=== PATIENT | male | born 1935 | race Caucasian/White ===

== ENCOUNTER 2021-07-12 18:52 | Observation (INO) | payer MEDICARE ==
--- NOTE | 2021-07-12 19:48 | ED ---
General Adult HPI - General Chief complaint: Arrhythmia/Palpitations Stated complaint: Weakness Time Seen by Provider: 07/12/21 19:33 Source: patient, RN/MD, old records reviewed Mode of arrival: ambulatory Limitations: no limitations - History of Present Illness Initial comments: Patient was transferred to our ED from the [facility] ED by jennifer deleon. Per [facility] emergency physician report, the patient was transferred due to atrial fibrillation and symptomatic bradycardia. Patient states that his landlord took him to the [facility] ED this afternoon because he was "not feeling well". Patient states that he has felt generally weak and mildly dyspneic today. Patient states that he is under adult foster care. Patient denies having any pain, fever or chills, headache, focal numbness/weakness/neuro deficit, visual changes, speech difficulty, neck/back/extremity pain, chest pain, cough or cold symptoms, syncope, abdominal pain, nausea/vomiting/diarrhea, bloody or melanotic stool, dysuria or urinary symptoms, or any other symptoms or complaints. Patient's labs and head CT report were reviewed myself. Patient's labs are pertinent for a WBC count of 11.5, a glucose of 200, a BUN of 29, a creatinine of 2.2, a negative Covid test, and a negative troponin. Patient's head CT report was negative. Patient is on Eliquis anticoagulation therapy. - Related Data Home Medications Medication Instructions Recorded Confirmed Apixaban [Eliquis] 2.5 mg PO BID@0700,1900 07/12/21 07/12/21 Aspirin EC [Ecotrin Low Dose] 81 mg PO DAILY@0707/12/21 07/12/21 Cholecalciferol [Vitamin D3 (25 25 mcg PO DAILY@0707/12/21 07/12/21 Mcg = 1000 Iu)] Cyanocobalamin (Vitamin B-12) 1,000 mcg PO DAILY@0700 07/12/21 07/12/21 [Vitamin B-12] Fenofibrate Nanocrystallized 48 mg PO HS@1900 07/12/21 07/12/21 [Fenofibrate] Ferrous Sulfate [Feosol] 325 mg PO DAILY@0700 07/12/21 07/12/21 Folic Acid 1 mg PO DAILY@0700 07/12/21 07/12/21 Insuln Asp Prt/Insulin Aspart 8 unit SQ BID@0700,1900 07/12/21 07/12/21 [NovoLOG MIX 70-30 VIAL] Levothyroxine Sodium [Synthroid] 25 mcg PO DAILY@0700 07/12/21 07/12/21 Levothyroxine Sodium [Synthroid] 200 mcg PO DAILY@0700 07/12/21 07/12/21 Metoprolol Tartrate 12.5 mg PO DAILY@0700 07/12/21 07/12/21 OLANZapine [ZyPREXA] 2.5 mg PO BID@0700,1900 07/12/21 07/12/21 OLANZapine [ZyPREXA] 10 mg PO HS@1900 07/12/21 07/12/21 Tamsulosin HCl [Flomax] 0.4 mg PO HS@1900 07/12/21 07/12/21 lamoTRIgine [LaMICtal] 100 mg PO BID@0700,1900 07/12/21 07/12/21 Allergies Allergy/AdvReac Type Severity Reaction Status Date / Time No Known Allergies Allergy Verified 07/12/21 20:25 Review of Systems ROS Statement: Those systems with pertinent positive or pertinent negative responses have been documented in the HPI. ROS Other: All systems not noted in ROS Statement are negative. Past Medical History Past Medical History: Atrial Fibrillation, Diabetes Mellitus, Hyperlipidemia, Hypertension, Renal Disease History of Any Multi-Drug Resistant Organisms: None Reported Past Surgical History: No Surgical Hx Reported Smoking Status: Current every day smoker Past Alcohol Use History: None Reported Past Drug Use History: None Reported General Exam Limitations: no limitations General appearance: alert, in no apparent distress Head exam: Present: atraumatic, normocephalic Eye exam: Present: normal appearance, PERRL, EOMI ENT exam: Present: mucous membranes moist Neck exam: Present: other (Trachea is in midline). Absent: tenderness, meningismus Respiratory exam: Present: normal lung sounds bilaterally. Absent: respiratory distress, wheezes, rales, rhonchi, stridor Cardiovascular Exam: Present: bradycardia, irregular rhythm, normal heart sounds, other (Normal radial pulses bilaterally) GI/Abdominal exam: Present: soft. Absent: distended, tenderness, guarding Extremities exam: Absent: tenderness, pedal edema, calf tenderness Neurological exam: Present: alert, CN II-XII intact, other (Patient is oriented to person and place, but not to time). Absent: motor sensory deficit Psychiatric exam: Present: normal affect, normal mood Skin exam: Present: warm, dry, intact, normal color Course Vital Signs 07/12/21 07/12/21 18:55 20:10 Temperature 96.0 F L Pulse Rate 58 L 57 L Respiratory 18 16 Rate Blood Pressure 175/74 136/92 O2 Sat by Pulse 98 98 Oximetry - Reevaluation(s) Reevaluation #1: 07/12/21 21:26 Patient denies development of any new symptoms while in the ED. Patient remains in slow atrial flutter on the traffic monitor specialist. Patient remains alert and breathing comfortably with a normal room air oxygen saturation. Patient is aware of his test results, and he agrees with hospital admission at this time. 07/12/21 21:33 Case, H&P and test results were discussed with Dr. Gotti . He accepts hospital admission. He agrees with cardiology consultation. He has no further recommendations at this time. EKG Findings - EKG Comments: EKG Findings:: Atrial flutter with 4:1 AV conduction, ventricular rate of 60 bpm, left bundle branch block, QRS duration of 152 ms, QTc interval of 498 ms, leftward axis, no old EKG is available for comparison Medical Decision Making - Medical Decision Making Patient was transferred from [facility] for admission due to slow atrial fibrillation. Patient is noted to be in atrial flutter with 4:1 conduction in the ED. Patient's troponin remains negative. Patient's labs are pertinent for chronic renal insufficiency. Patient's labs are otherwise fairly unremarkable. Patient's chest x-ray is unremarkable. Patient has not been hypotensive while in the ED. Dr. Gotti has accepted hospital admission. - Lab Data Result diagrams: 07/12/21 20:09 07/12/21 20:09 Lab Results 07/12/21 07/12/21 07/12/21 Range/Units 19:49 20:09 20:09 WBC 9.6 (3.8-10.6) k/uL RBC 3.97 L (4.30-5.90) m/uL Hgb 13.4 (13.0-17.5) gm/dL Hct 41.2 (39.0-53.0) % MCV 103.6 H (80.0-100.0) fL MCH 33.8 (25.0-35.0) pg MCHC 32.6 (31.0-37.0) g/dL RDW 11.9 (11.5-15.5) % Plt Count 226 (150-450) k/uL MPV 8.4 Neutrophils % 87 % Lymphocytes % 9 % Monocytes % 3 % Eosinophils % 0 % Basophils % 0 % Neutrophils # 8.4 H (1.3-7.7) k/uL Lymphocytes # 0.9 L (1.0-4.8) k/uL Monocytes # 0.3 (0-1.0) k/uL Eosinophils # 0.0 (0-0.7) k/uL Basophils # 0.0 (0-0.2) k/uL Macrocytosis Slight PT 11.2 (9.0-12.0) sec INR 1.1 (<1.2) APTT 39.5 H (22.0-30.0) sec Sodium (137-145) mmol/L Potassium (3.5-5.1) mmol/L Chloride (98-107) mmol/L Carbon Dioxide (22-30) mmol/L Anion Gap mmol/L BUN (9-20) mg/dL Creatinine (0.66-1.25) mg/dL Est GFR (CKD-EPI)AfAm (>60 ml/min/1.73 sqM) Est GFR (CKD-EPI)NonAf (>60 ml/min/1.73 sqM) Glucose (74-99) mg/dL Calcium (8.4-10.2) mg/dL Magnesium (1.6-2.3) mg/dL Total Bilirubin (0.2-1.3) mg/dL AST (17-59) U/L ALT (4-49) U/L Alkaline Phosphatase (38-126) U/L Troponin I (0.000-0.034) ng/mL Total Protein (6.3-8.2) g/dL Albumin (3.5-5.0) g/dL TSH (0.465-4.680) mIU/L Urine Color Yellow Urine Appearance Clear (Clear) Urine pH 6.5 (5.0-8.0) Ur Specific [place] 1.014 (1.001-1.035) Urine Protein Trace H (Negative) Urine Glucose (UA) 1+ H (Negative) Urine Ketones Negative (Negative) Urine Blood Negative (Negative) Urine Nitrite Negative (Negative) Urine Bilirubin Negative (Negative) Urine Urobilinogen <2.0 (<2.0) mg/dL Ur Leukocyte Esterase Negative (Negative) 07/12/21 07/12/21 Range/Units 20:09 20:09 WBC (3.8-10.6) k/uL RBC (4.30-5.90) m/uL Hgb (13.0-17.5) gm/dL Hct (39.0-53.0) % MCV (80.0-100.0) fL MCH (25.0-35.0) pg MCHC (31.0-37.0) g/dL RDW (11.5-15.5) % Plt Count (150-450) k/uL MPV Neutrophils % % Lymphocytes % % Monocytes % % Eosinophils % % Basophils % % Neutrophils # (1.3-7.7) k/uL Lymphocytes # (1.0-4.8) k/uL Monocytes # (0-1.0) k/uL Eosinophils # (0-0.7) k/uL Basophils # (0-0.2) k/uL Macrocytosis PT (9.0-12.0) sec INR (<1.2) APTT (22.0-30.0) sec Sodium 141 (137-145) mmol/L Potassium 4.2 (3.5-5.1) mmol/L Chloride 115 H (98-107) mmol/L Carbon Dioxide 19 L (22-30) mmol/L Anion Gap 7 mmol/L BUN 27 H (9-20) mg/dL Creatinine 1.79 H (0.66-1.25) mg/dL Est GFR (CKD-EPI)AfAm 39 (>60 ml/min/1.73 sqM) Est GFR (CKD-EPI)NonAf 34 (>60 ml/min/1.73 sqM) Glucose 163 H (74-99) mg/dL Calcium 8.7 (8.4-10.2) mg/dL Magnesium 2.0 (1.6-2.3) mg/dL Total Bilirubin 0.4 (0.2-1.3) mg/dL AST 24 (17-59) U/L ALT 20 (4-49) U/L Alkaline Phosphatase 58 (38-126) U/L Troponin I <0.012 (0.000-0.034) ng/mL Total Protein 6.6 (6.3-8.2) g/dL Albumin 3.7 (3.5-5.0) g/dL TSH 2.160 (0.465-4.680) mIU/L Urine Color Urine Appearance (Clear) Urine pH (5.0-8.0) Ur Specific [place] (1.001-1.035) Urine Protein (Negative) Urine Glucose (UA) (Negative) Urine Ketones (Negative) Urine Blood (Negative) Urine Nitrite (Negative) Urine Bilirubin (Negative) Urine Urobilinogen (<2.0) mg/dL Ur Leukocyte Esterase (Negative) - Radiology Data Radiology results: report reviewed (Chest x-ray: No active cardiopulmonary disease. Normal heart. Atheromatous aorta.) Disposition Clinical Impression: Chronic renal insufficiency, Atrial flutter, Bradycardia Disposition: ADMITTED IP TO THIS HOSP Condition: Stable Is patient prescribed a controlled substance at d/c from ED?: No Referrals: Nonstaff,Physician [Primary Care Provider] - 1-2 days Time of Disposition: 21:34
--- NOTE | 2021-07-12 20:02 | XR ---
EXAMINATION TYPE: XR chest 1V portable DATE OF EXAM: 07/12/2021 COMPARISON: NONE HISTORY: Weakness TECHNIQUE: Single view FINDINGS: There is no heart failure nor confluent pneumonic infiltrate. Costophrenic angles are clear . Thoracic aorta is atheromatous. There are chest leads. IMPRESSION: No active cardiopulmonary disease. Normal heart. Atheromatous aorta.
[2021-07-12 20:25] LABS: Basophils % (A) 0 %; Eosinophils % (A) 0 %; HCT 41.2 % (39.0-53.0); HGB 13.4 gm/dL (13.0-17.5); Lymphocytes # (A) 0.9 k/uL (1.0-4.8); Lymphocytes % (A) 9 %; MCH 33.8 pg (25.0-35.0); MCHC 32.6 g/dL (31.0-37.0); MCV 103.6 fL (80.0-100.0); Macrocytosis Slight; Mean Platelet Volume 8.4; Monocytes # (A) 0.3 k/uL (0-1.0); Monocytes % (A) 3 %; Neutrophils # (A) 8.4 k/uL (1.3-7.7); Neutrophils % (A) 87 %; Platelet Count 226 k/uL (150-450); RBC 3.97 m/uL (4.30-5.90); RDW 11.9 % (11.5-15.5); WBC 9.6 k/uL (3.8-10.6)
[2021-07-12 20:33] LABS: Appearance,Urine Clear (Clear); Bilirubin,Urine Negative (Negative); Blood,Urine Negative (Negative); Color,Urine Yellow; Glucose,Urine (UA) 1+ (Negative); Ketones,Urine Negative (Negative); Leukocyte Esterase,Urine Negative (Negative); Nitrite,Urine Negative (Negative); PH, Urine 6.5 (5.0-8.0); Protein,Urine Trace (Negative); Specific Gravity,Urine 1.014 (1.001-1.035); Urobilinogen,Urine <2.0 mg/dL (<2.0)
[2021-07-12 20:39] LABS: Albumin 3.7 g/dL (3.5-5.0); Calcium 8.7 mg/dL (8.4-10.2); Potassium 4.2 mmol/L (3.5-5.1); Total Bilirubin 0.4 mg/dL (0.2-1.3); Total Protein 6.6 g/dL (6.3-8.2)
[2021-07-12 20:40] LABS: INR 1.1 (<1.2); Partial Thromboplastin Time 39.5 sec (22.0-30.0); Prothrombin Time 11.2 sec (9.0-12.0)
[2021-07-13] MEDS: LEVOTHYROXINE 25 MCG TAB PO SCH (07:19)
[2021-07-13] MEDS: LEVOTHYROXINE 100 MCG TAB PO SCH (07:19)
[2021-07-13] MEDS: APIXABAN 2.5 MG TABLET PO SCH ×2 (09:21→20:56)
[2021-07-13] MEDS: ASPIRIN 81 MG PO SCH (09:22)
[2021-07-13] MEDS: lamoTRIgine 100 MG TAB PO SCH ×2 (09:22→20:56)
[2021-07-13 09:41] LABS: Basophils % (A) 0 %; Eosinophils # (A) 0.1 k/uL (0-0.7); Eosinophils % (A) 1 %; HCT 39.3 % (39.0-53.0); HGB 12.8 gm/dL (13.0-17.5); Lymphocytes # (A) 1.3 k/uL (1.0-4.8); Lymphocytes % (A) 14 %; MCH 33.1 pg (25.0-35.0); MCHC 32.5 g/dL (31.0-37.0); Mean Platelet Volume 8.7; Monocytes # (A) 0.5 k/uL (0-1.0); Monocytes % (A) 5 %; Neutrophils # (A) 7.1 k/uL (1.3-7.7); Neutrophils % (A) 79 %; Platelet Count 261 k/uL (150-450); RBC 3.86 m/uL (4.30-5.90); RDW 12.1 % (11.5-15.5); WBC 9.1 k/uL (3.8-10.6)
[2021-07-13 09:54] LABS: Albumin 3.5 g/dL (3.5-5.0); Calcium 9.2 mg/dL (8.4-10.2); Total Bilirubin 0.4 mg/dL (0.2-1.3); Total Protein 6.5 g/dL (6.3-8.2)
[2021-07-13] MEDS: OLANZapine 2.5 MG TAB PO SCH ×2 (12:47→20:56)
--- NOTE | 2021-07-13 13:03 | P.CRDCN ---
History of Present Illness History of present illness: HISTORY OF PRESENTING ILLNESS Patient is a pleasant 86-year-old male who was transferred from [facility] secondary to A. fib and apparent symptomatic bradycardia. Patient is a poor historian and is on sure why he is in the hospital. Apparently he is under the foster care. He denies any chest pain, pressure, shortness breath. He does not recall feeling lightheaded or weak or fatigued or syncope however is a poor historian. Patient has a white blood cell count 11.5, BUN 29, creatinine 2.2, troponin negative, CT head was negative for acute process. Patient is on metoprolol 12.5 mg daily at home. No other AV alison blocking agents. REVIEW OF SYSTEMS At the time of my exam: CONSTITUTIONAL: Denies fever or chills. CARDIOVASCULAR: Denies chest pain, shortness of breath, orthopnea, PND or palpitations. RESPIRATORY: Denies cough. GASTROINTESTINAL: Denies abdominal pain, diarrhea, constipation, nausea or vomiting. MUSCULOSKELETAL: Denies myalgias. NEUROLOGIC: Denies numbness, tingling or weakness. ENDOCRINE: Denies fatigue, weight change, polydipsia or polyurina. GENITOURINARY: Denies burning, hematuria or urgency with micturation. HEMATOLOGIC: Denies history of anemia or bleeding. PHYSICAL EXAMINATION Vital signs reviewed. CONSTITUTIONAL: No apparent distress. HEENT: Head is normocephalic. Pupils are equal, round. Sclerae anicteric. Mucous membranes of the mouth are moist. No JVD. No carotid bruit. CHEST EXAMINATION: Lungs are clear to auscultation. No chest wall tenderness is noted on palpation or with deep breathing. HEART EXAMINATION: Regular rate and rhythm. S1, S2 heard. No murmurs, gallops or rub. ABDOMEN: Soft, nontender. Positive bowel sounds. EXTREMITIES: 2+ peripheral pulses, no lower extremity edema and no calf tenderness. NEUROLOGIC EXAMINATION: Patient is awake, alert poor historian ASSESSMENT 1. Atrial flutter with heart rates in the 50s to 60s 2. Questionable symptomatic bradycardia 3. Reported fatigue, currently denying 4. Chronic kidney disease 5. Dementia PLAN Patient is a poor historian however apparently was felt to be symptomatic from bradycardia. In the emergency department his heart rates have been in the 50s to 60s without significant pauses noted. We will continue to monitor. Hold home metoprolol and monitor heart rates. We will review records from [place] to identify if there was a more significant on his noted however would consider stopping AV alison blocking agents before consideration of permanent pacemaker. Check 2-D echo. Further recommendations to follow. Past Medical History Past Medical History: Atrial Fibrillation, Diabetes Mellitus, Hyperlipidemia, Hypertension, Renal Disease History of Any Multi-Drug Resistant Organisms: None Reported Past Surgical History: No Surgical Hx Reported Smoking Status: Current every day smoker Past Alcohol Use History: None Reported Past Drug Use History: None Reported Medications and Allergies Home Medications Medication Instructions Recorded Confirmed Type Apixaban [Eliquis] 2.5 mg PO BID@0700,1900 07/12/21 07/12/21 History Aspirin EC [Ecotrin Low Dose] 81 mg PO DAILY@0700 07/12/21 07/12/21 History Cholecalciferol [Vitamin D3 (25 25 mcg PO DAILY@0700 07/12/21 07/12/21 History Mcg = 1000 Iu)] Cyanocobalamin (Vitamin B-12) 1,000 mcg PO DAILY@0700 07/12/21 07/12/21 History [Vitamin B-12] Fenofibrate Nanocrystallized 48 mg PO HS@1900 07/12/21 07/12/21 History [Fenofibrate] Ferrous Sulfate [Feosol] 325 mg PO DAILY@0700 07/12/21 07/12/21 History Folic Acid 1 mg PO DAILY@0700 07/12/21 07/12/21 History Insuln Asp Prt/Insulin Aspart 8 unit SQ BID@0700,1900 07/12/21 07/12/21 History [NovoLOG MIX 70-30 VIAL] Levothyroxine Sodium [Synthroid] 25 mcg PO DAILY@0700 07/12/21 07/12/21 History Levothyroxine Sodium [Synthroid] 200 mcg PO DAILY@0700 07/12/21 07/12/21 History Metoprolol Tartrate 12.5 mg PO DAILY@0700 07/12/21 07/12/21 History OLANZapine [ZyPREXA] 2.5 mg PO BID@0700,1900 07/12/21 07/12/21 History OLANZapine [ZyPREXA] 10 mg PO HS@1900 07/12/21 07/12/21 History Tamsulosin HCl [Flomax] 0.4 mg PO HS@1900 07/12/21 07/12/21 History lamoTRIgine [LaMICtal] 100 mg PO BID@0700,1900 07/12/21 07/12/21 History Allergies Allergy/AdvReac Type Severity Reaction Status Date / Time No Known Allergies Allergy Verified 07/12/21 20:25 Physical Exam Vitals: Vital Signs Temp Pulse Resp BP Pulse Ox 07/13/21 12:49 64 18 155/88 95 07/13/21 09:28 64 18 164/74 07/13/21 07:21 66 18 123/52 98 07/13/21 07:00 96.9 F L 62 18 141/61 98 07/13/21 05:00 54 L 18 07/13/21 03:00 60 18 07/13/21 01:49 EST 54 L 18 96 07/13/21 01:24 EDT 52 L 18 132/84 97 07/13/21 00:11 61 16 158/81 96 07/12/21 20:10 96.0 F L 57 L 16 136/92 98 07/12/21 18:55 58 L 18 175/74 98 Intake and Output 07/12/21 07/13/21 07/13/21 23:59 06:59 14:59 Other: Weight Results 07/13/21 08:58 07/13/21 08:58 Cardiac Enzymes 07/12/21 07/12/21 07/13/21 Range/Units 20:09 20:09 08:58 AST 24 23 (17-59) U/L Troponin I <0.012 (0.000-0.034) ng/mL Coagulation 07/12/21 Range/Units 20:09 PT 11.2 (9.0-12.0) sec APTT 39.5 H (22.0-30.0) sec CBC 07/12/21 07/13/21 Range/Units 20:09 08:58 WBC 9.6 9.1 (3.8-10.6) k/uL RBC 3.97 L 3.86 L (4.30-5.90) m/uL Hgb 13.4 12.8 L (13.0-17.5) gm/dL Hct 41.2 39.3 (39.0-53.0) % Plt Count 226 261 (150-450) k/uL Comprehensive Metabolic Panel 07/12/21 07/13/21 Range/Units 20:09 08:58 Sodium 141 142 (137-145) mmol/L Potassium 4.2 4.0 (3.5-5.1) mmol/L Chloride 115 H 115 H (98-107) mmol/L Carbon Dioxide 19 L 21 L (22-30) mmol/L BUN 27 H 25 H (9-20) mg/dL Creatinine 1.79 H 1.73 H (0.66-1.25) mg/dL Glucose 163 H 176 H (74-99) mg/dL Calcium 8.7 9.2 (8.4-10.2) mg/dL AST 24 23 (17-59) U/L ALT 20 19 (4-49) U/L Alkaline Phosphatase 58 50 (38-126) U/L Total Protein 6.6 6.5 (6.3-8.2) g/dL Albumin 3.7 3.5 (3.5-5.0) g/dL Current Medications Generic Name Dose Route Start Last Admin Trade Name Freq PRN Reason Stop Dose Admin Apixaban 2.5 mg 07/13/21 09:00 07/13/21 09:21 Apixaban 2.5 Mg Tablet PO 2.5 mg BID MARAL Administration Protocol Aspirin 81 mg 07/13/21 09:00 07/13/21 09:22 Aspirin 81 Mg PO 81 mg DAILY MARAL Administration Lamotrigine 100 mg 07/13/21 09:00 07/13/21 09:22 Lamotrigine 100 Mg Tab PO 100 mg BID MARAL Administration Levothyroxine Sodium 25 mcg 07/13/21 06:30 07/13/21 07:19 Levothyroxine 25 Mcg Tab PO 25 mcg DAILY@30 MARAL Administration Levothyroxine Sodium 200 mcg 07/13/21 06:30 07/13/21 07:19 Levothyroxine 100 Mcg Tab PO 200 mcg DAILY@30 MARAL Administration Olanzapine 2.5 mg 07/13/21 09:00 07/13/21 12:47 Olanzapine 2.5 Mg Tab PO 2.5 mg BID MARAL Administration Olanzapine 10 mg 07/13/21 21:00 Olanzapine 10 Mg Tab PO HS MARAL Tamsulosin HCl 0.4 mg 07/13/21 21:00 Tamsulosin 0.4 Mg Cap.Er.24h PO HS MARAL Intake and Output 07/12/21 07/13/21 07/13/21 23:59 06:59 14:59 Other: Weight 07/13/21 08:58 07/13/21 08:58
--- NOTE | 2021-07-13 16:46 | P.HPIM ---
History of Present Illness H&P Date: 07/13/21 Chief Complaint: Palpitations Patient is a 86-year-old male with a known history of atrial fibrillation on anticoagulation with Eliquis and on metoprolol 12.5 mg by mouth daily, diabetes type 2 insulin-dependent, hypertension, hyperlipidemia, chronic kidney disease, currently everyday smoker, hypothyroidism and BPH was initially presented to [facility] due to complaints of generalized weakness and not feeling well. Patient is currently at [facility] home and has a guardian. Patient was found to be in atrial fibrillation with bradycardia/symptomatic bradycardia. Patient was transferred to [facility] for evolution by cardiology. Patient otherwise denied any complaints of chest pain. No fever no chills. No focal weakness. Denied any cough congestion. No dysuria or hematuria. Patient had head CT at [facility] showed no acute proces s. laboratory data reviewed from the other hospital. COVID-19 test is negative. BNP 29 and creatinine was 2.2 on admission. chest x-ray showed no active cardiopulmonary disease. His metastatic aorta. EKG showed atrial flutter with 40s to 1 AV conduction. Blood pressure 175/54, heart rate 58 and respiration 18 and pulse ox 98% on room air on admission. Laboratory data showed WBC 9.6 hemoglobin 13.4 and platelets 226. Sodium 141 potassium 4.2 chloride 105 bicarb is 19 BUN 27 and creatinine 1.79 Living enzymes are not elevated troponin 1 negative and TSH level is 2.16 Urinalysis showed 1+ glucose and no evidence of infection. Past Medical History Past Medical History: Atrial Fibrillation, Diabetes Mellitus, Hyperlipidemia, Hypertension, Renal Disease History of Any Multi-Drug Resistant Organisms: None Reported Past Surgical History: No Surgical Hx Reported Smoking Status: Current every day smoker Past Alcohol Use History: None Reported Past Drug Use History: None Reported Medications and Allergies Home Medications Medication Instructions Recorded Confirmed Type Apixaban [Eliquis] 2.5 mg PO BID@0700,1900 07/12/21 07/12/21 History Aspirin EC [Ecotrin Low Dose] 81 mg PO DAILY@0700 07/12/21 07/12/21 History Cholecalciferol [Vitamin D3 (25 25 mcg PO DAILY@0700 07/12/21 07/12/21 History Mcg = 1000 Iu)] Cyanocobalamin (Vitamin B-12) 1,000 mcg PO DAILY@0700 07/12/21 07/12/21 History [Vitamin B-12] Fenofibrate Nanocrystallized 48 mg PO HS@1900 07/12/21 07/12/21 History [Fenofibrate] Ferrous Sulfate [Feosol] 325 mg PO DAILY@0700 07/12/21 07/12/21 History Folic Acid 1 mg PO DAILY@0700 07/12/21 07/12/21 History Insuln Asp Prt/Insulin Aspart 8 unit SQ BID@0700,1900 07/12/21 07/12/21 History [NovoLOG MIX 70-30 VIAL] Levothyroxine Sodium [Synthroid] 25 mcg PO DAILY@0700 07/12/21 07/12/21 History Levothyroxine Sodium [Synthroid] 200 mcg PO DAILY@0700 07/12/21 07/12/21 History OLANZapine [ZyPREXA] 2.5 mg PO BID@0700,1900 07/12/21 07/12/21 History OLANZapine [ZyPREXA] 10 mg PO HS@1900 07/12/21 07/12/21 History Tamsulosin HCl [Flomax] 0.4 mg PO HS@1900 07/12/21 07/12/21 History lamoTRIgine [LaMICtal] 100 mg PO BID@0700,1900 07/12/21 07/12/21 History Allergies Allergy/AdvReac Type Severity Reaction Status Date / Time No Known Allergies Allergy Verified 07/12/21 20:25 Physical Exam Vitals: Vital Signs Temp Pulse Resp BP Pulse Ox 07/13/21 14:09 175/81 07/13/21 14:00 64 18 07/13/21 12:49 64 18 155/88 95 07/13/21 09:28 64 18 164/74 07/13/21 07:21 66 18 123/52 98 07/13/21 07:00 96.9 F L 62 18 141/61 98 07/13/21 05:00 54 L 18 07/13/21 03:00 60 18 07/13/21 01:49 EST 54 L 18 96 07/13/21 01:24 EDT 52 L 18 132/84 97 07/13/21 00:11 61 16 158/81 96 07/12/21 20:10 96.0 F L 57 L 16 136/92 98 07/12/21 18:55 58 L 18 175/74 98 Intake and Output 07/12/21 07/13/21 07/13/21 23:59 06:59 14:59 Other: Weight PHYSICAL EXAMINATION: Patient is lying in the bed comfortably, no acute distress, awake alert but lethargic and poor historian... HEENT: Normocephalic. Neck is supple. Pupils reactive. Nostrils clear. Oral cavity is moist. Neck reveals no JVD, carotid bruits, or thyromegaly. CHEST EXAMINATION: Trachea is central. Symmetrical expansion. Bibasilar diminished sounds. Lung robertson clear to auscultation and percussion. CARDIAC: Normal S1, S2 with no gallops. No murmurs ABDOMEN: Soft. Bowel sounds normal. No organomegaly. No abdominal bruits. Extremities: reveal no edema. No clubbing or cyanosis Neurologically awake, alert, oriented 2-3 with well-coordinated movements. No focal deficits noted Skin: No rash or skin lesions. Psychiatric: Coperative. Could not be assessed completely. Musculoskeletal: No joint swelling or deformity. Normal range of motion. Results CBC & Chem 7: 07/14/21 06:35 07/14/21 06:35 Labs: Abnormal Lab Results - Last 24 Hours (Table) 07/12/21 07/12/21 07/12/21 Range/Units 19:49 20:09 20:09 RBC 3.97 L (4.30-5.90) m/uL Hgb (13.0-17.5) gm/dL MCV 103.6 H (80.0-100.0) fL Neutrophils # 8.4 H (1.3-7.7) k/uL Lymphocytes # 0.9 L (1.0-4.8) k/uL APTT 39.5 H (22.0-30.0) sec Chloride (98-107) mmol/L Carbon Dioxide (22-30) mmol/L BUN (9-20) mg/dL Creatinine (0.66-1.25) mg/dL Glucose (74-99) mg/dL Urine Protein Trace H (Negative) Urine Glucose (UA) 1+ H (Negative) 07/12/21 07/13/21 07/13/21 Range/Units 20:09 08:58 08:58 RBC 3.86 L (4.30-5.90) m/uL Hgb 12.8 L (13.0-17.5) gm/dL MCV 102.0 H (80.0-100.0) fL Neutrophils # (1.3-7.7) k/uL Lymphocytes # (1.0-4.8) k/uL APTT (22.0-30.0) sec Chloride 115 H 115 H (98-107) mmol/L Carbon Dioxide 19 L 21 L (22-30) mmol/L BUN 27 H 25 H (9-20) mg/dL Creatinine 1.79 H 1.73 H (0.66-1.25) mg/dL Glucose 163 H 176 H (74-99) mg/dL Urine Protein (Negative) Urine Glucose (UA) (Negative) Thrombosis Risk Factor Assmnt - DVT/VTE Prophylaxis DVT/VTE Prophylaxis: Pharmacologic Prophylaxis ordered Assessment and Plan Assessment: Atrial flutter with 4:1 conduction Symptomatic bradycardia with generalized weakness and not feeling well. Paroxysmal atrial fibrillation on anticoagulation with Eliquis and on metoprolol for rate control. Diabetes type 2 insulin Uncontrolled hypertension Acute on Chronic kidney disease stage III Currently everyday smoker DVT prophylaxis patient is already on full anticoagulation Plan: Patient will be continued on telemetry monitoring. Metoprolol is on hold due to symptomatic bradycardia. Patient will be given gentle IV hydration and encourage oral intake. TSH is within normal limits. Monitor renal function and cardiology was consulted for evaluation. Continue to follow closely. Time with Patient: Greater than 30
[2021-07-13] MEDS: amLODIPine 5 MG TAB PO SCH (17:15)
[2021-07-13 17:25] LABS: Glucose,Whole Blood 153 mg/dL (75-99)
[2021-07-13] MEDS ORDERED: FENOFIBRATE 54 MG TAB PO SCH (19:00)
[2021-07-13 19:59] LABS: Glucose,Whole Blood 139 mg/dL (75-99)
[2021-07-13] MEDS: INSULN ASP PRT/INSULIN ASPART 100 UNIT/ML 10 ML VIAL SQ SCH (20:56)
[2021-07-13] MEDS: TAMSULOSIN 0.4 MG CAP.ER.24H PO SCH (20:56)
[2021-07-13] MEDS: FENOFIBRATE 54 MG TAB PO SCH (20:59)
[2021-07-13] MEDS: OLANZapine 10 MG TAB PO SCH (20:59)
[2021-07-14] MEDS: LEVOTHYROXINE 25 MCG TAB PO SCH (05:42)
[2021-07-14] MEDS: LEVOTHYROXINE 100 MCG TAB PO SCH (05:45)
[2021-07-14 07:14] LABS: Glucose,Whole Blood 154 mg/dL (75-99)
[2021-07-14] MEDS: OLANZapine 2.5 MG TAB PO SCH ×2 (08:08→21:22)
[2021-07-14] MEDS: CHOLECALCIFEROL 25 MCG (1000 IU) TABLET PO SCH (08:08)
[2021-07-14] MEDS: lamoTRIgine 100 MG TAB PO SCH ×2 (08:09→21:22)
[2021-07-14] MEDS: amLODIPine 5 MG TAB PO SCH (08:09)
[2021-07-14] MEDS: FOLIC ACID 1 MG TAB PO SCH (08:09)
[2021-07-14] MEDS: CYANOCOBALAMIN 500 MCG TAB PO SCH (08:09)
[2021-07-14] MEDS: APIXABAN 2.5 MG TABLET PO SCH ×2 (08:09→21:22)
[2021-07-14] MEDS: ASPIRIN 81 MG PO SCH (08:09)
[2021-07-14] MEDS: INSULN ASP PRT/INSULIN ASPART 100 UNIT/ML 10 ML VIAL SQ SCH ×2 (08:31→21:21)
--- NOTE | 2021-07-14 10:42 | P.PN ---
Subjective HISTORY OF PRESENTING ILLNESS Patient is a pleasant 86-year-old male who was transferred from [facility] secondary to A. fib and apparent symptomatic bradycardia. Patient is a poor historian and is on sure why he is in the hospital. He denies any chest pain, pressure, shortness breath, lightheadedness, dizziness. He does not have any complaints at this time. CT head was negative for acute process. Patient is on amlodipine 5 mg daily, Eliquis 2.5 mg twice a day, aspirin 80 mg daily, Lofibra 54mg nightly, synthroid, lamictal, zyprexa, flomax. Telemetry reviewed, his heart rates have been in the 50s to 60s without significant pauses noted. TSH within normal limits. PHYSICAL EXAMINATION Vital signs reviewed. CONSTITUTIONAL: No apparent distress. HEENT: Neck Supple No JVD. CHEST EXAMINATION: Lungs are clear to auscultation. No chest wall tenderness is noted on palpation or with deep breathing. HEART EXAMINATION: Regular rate and rhythm. S1, S2 heard. No murmurs, gallops or rub. ABDOMEN: Soft, nontender. Positive bowel sounds. EXTREMITIES: 2+ peripheral pulses, no lower extremity edema and no calf tenderness. NEUROLOGIC EXAMINATION: Patient is awake, alert poor historian ASSESSMENT Atrial flutter with heart rates in the 50s to 60s Questionable symptomatic bradycardia Reported fatigue, currently denying Chronic kidney disease Dementia PLAN -Patient is a poor historian however apparently was felt to be symptomatic from bradycardia. Telemetry reviewed, his heart rates have been in the 50s to 60s without significant pauses noted. -Continue to hold home metoprolol. -2D echocardiogram ordered, if no significant abnormalities on echocardiogram, no further workup and patient from a cardiology perspective and recommend patient follow-up as an outpatient Objective - Vital Signs Vital signs: Vital Signs Temp 97.3 F L 07/14/21 07:00 Pulse 64 07/14/21 08:00 Resp 18 07/14/21 08:00 BP 162/77 07/14/21 07:00 Pulse Ox 95 07/14/21 07:00 Intake & Output 07/13/21 07/14/21 07/14/21 18:59 06:59 18:59 Intake Total 120 180 Output Total 400 300 Balance 120 -400 -120 Weight 81.647 kg Intake: Oral 120 180 Output: Urine 400 300 Other: Voiding Method Toilet # Voids 0 2 - Labs CBC & Chem 7: 07/13/21 08:58 07/13/21 08:58 Labs: Abnormal Lab Results - Last 24 Hours (Table) 07/13/21 07/13/21 07/14/21 Range/Units 17:13 19:58 07:13 POC Glucose (mg/dL) 153 H 139 H 154 H (75-99) mg/dL
[2021-07-14 10:55] LABS: Basophils # (A) 0.05 X 10*3/uL (0.00-0.10); Basophils % (A) 0.6 %; Eosinophils # (A) 0.16 X 10*3/uL (0.04-0.35); Eosinophils % (A) 1.9 %; HCT 38.1 % (39.6-50.0); HGB 12.2 g/dL (13.0-17.0); Lymphocytes # (A) 2.03 X 10*3/uL (0.90-5.00); Lymphocytes % (A) 24.7 %; MCH 32.6 pg (27.0-32.0); MCV 101.9 fL (80.0-97.0); Mean Platelet Volume 11.3 fL (9.5-12.2); Monocytes # (A) 0.73 X 10*3/uL (0.20-1.00); Monocytes % (A) 8.9 %; Neutrophils # (A) 5.22 X 10*3/uL (1.80-7.70); Neutrophils % (A) 63.5 %; Platelet Count 255 X 10*3/uL (140-440); RBC 3.74 X 10*6/uL (4.40-5.60); RDW 12.8 % (11.5-14.5); WBC 8.22 X 10*3/uL (4.50-10.00)
[2021-07-14 11:19] LABS: African American GFR (CKD) 36.7 (60.0-200.0); Anion Gap 9.1 mmol/L (4.00-12.00); BUN/Creat Ratio 14.1 Ratio (12.00-20.00); Blood Urea Nitrogen 26.5 mg/dL (9.0-27.0); Calcium 9.4 mg/dL (8.7-10.3); Carbon Dioxide 22.7 mmol/L (21.6-31.8); Non-African American GFR(CKD) 31.6 (60.0-200.0)
[2021-07-14 12:13] LABS: Glucose,Whole Blood 115 mg/dL (75-99)
[2021-07-14 17:22] LABS: Glucose,Whole Blood 226 mg/dL (75-99)
[2021-07-14 20:26] LABS: Glucose,Whole Blood 136 mg/dL (75-99)
[2021-07-14] MEDS: TAMSULOSIN 0.4 MG CAP.ER.24H PO SCH (21:22)
[2021-07-14] MEDS: FENOFIBRATE 54 MG TAB PO SCH (21:22)
[2021-07-14] MEDS: OLANZapine 10 MG TAB PO SCH (21:22)
[2021-07-15] MEDS: LEVOTHYROXINE 100 MCG TAB PO SCH (05:34)
[2021-07-15] MEDS: LEVOTHYROXINE 25 MCG TAB PO SCH (05:34)
[2021-07-15 07:14] LABS: Glucose,Whole Blood 146 mg/dL (75-99)
[2021-07-15 07:22] VITALS: BP 146/74; PULSE 63; RESP 20; TEMP 98.4
[2021-07-15] MEDS: CYANOCOBALAMIN 500 MCG TAB PO SCH (07:49)
[2021-07-15] MEDS: FOLIC ACID 1 MG TAB PO SCH (07:50)
[2021-07-15] MEDS: lamoTRIgine 100 MG TAB PO SCH (07:50)
[2021-07-15] MEDS: APIXABAN 2.5 MG TABLET PO SCH (07:50)
[2021-07-15] MEDS: CHOLECALCIFEROL 25 MCG (1000 IU) TABLET PO SCH (07:50)
[2021-07-15] MEDS: amLODIPine 5 MG TAB PO SCH (07:50)
[2021-07-15] MEDS: OLANZapine 2.5 MG TAB PO SCH (07:50)
--- NOTE | 2021-07-15 07:59 | ECHOF ---
Referral Reason:re: aflutter MEASUREMENTS -------- HEIGHT: 180.3 cm WEIGHT: 81.6 kg BP: IVSd: 1.5 cm (0.6 - 1.1) LVIDd: 3.2 cm (3.9 - 5.3) LVPWd: 1.4 cm (0.6 - 1.1) IVSs: 2.1 cm LVIDs: 2.3 cm LVPWs: 1.9 cm Ao Diam: 3.9 cm (2.0 - 3.7) AV Cusp: 2.2 cm (1.5 - 2.6) LA Diam: 3.7 cm (2.7 - 3.8) MV EXCURSION: 19.436 mm (> 18.000) MV EF SLOPE: 133 mm/s (70 - 150) EPSS: 1.2 cm MV E [place]: 1.02 m/s MV DecT: 217 ms MV A [place]: 0.43 m/s MV E/A Ratio: 2.35 RAP: 5.00 mmHg RVSP: 17.61 mmHg FINDINGS -------- This was a technically difficult study with suboptimal views. The left ventricular size is normal. There is moderate concentric left ventricular hypertrophy. O verall left ventricular systolic function is low-normal with, an EF between 50 - 55 %. The right ventricle is normal in size. The left atrial size is normal. The right atrial size is normal. Lumason used The aortic valve was not well visualized. The mitral valve is normal. Mild mitral regurgitation is present. The tricuspid valve appears structurally normal. Trace tricuspid regurgitation present. Right rhett tricular systolic pressure is normal at < 35 mmHg. The pulmonic valve was not well visualized. The aortic root size is normal. IVC Not well visulized. There is no pericardial effusion. CONCLUSIONS -------- 1. This was a technically difficult study with suboptimal views. 2. There is moderate concentric left ventricular hypertrophy. 3. Overall left ventricular systolic function is low-normal with, an EF between 50 - 55 %. 4. The left atrial size is normal. 5. The aortic valve was not well visualized. 6. Mild mitral regurgitation is present. 7. Trace tricuspid regurgitation present. 8. There is no pericardial effusion. SIDING MECHANIC: Madyson Betancourt RDCS
[2021-07-15] MEDS: INSULN ASP PRT/INSULIN ASPART 100 UNIT/ML 10 ML VIAL SQ SCH (08:33)
--- NOTE | 2021-07-15 09:46 | P.PN ---
Subjective Progress Note Date: 07/14/21 Patient is a 86-year-old male with a known history of atrial fibrillation on anticoagulation with Eliquis and on metoprolol 12.5 mg by mouth daily, diabetes type 2 insulin-dependent, hypertension, hyperlipidemia, chronic kidney disease, currently everyday smoker, hypothyroidism and BPH was initially presented to [facility] due to complaints of generalized weakness and not feeling well. Patient is currently at [facility] home and has a guardian. Patient was found to be in atrial fibrillation with bradycardia/symptomatic bradycardia. Patient was transferred to [facility] for evolution by cardiology. Patient otherwise denied any complaints of chest pain. No fever no chills. No focal weakness. Denied any cough congestion. No dysuria or hematuria. Patient had head CT at [facility] showed no acute process. laboratory data reviewed from the other hospital. COVID-19 test is negative. BNP 29 and creatinine was 2.2 on admission. chest x-ray showed no active cardiopulmonary disease. His metastatic aorta. EKG showed atrial flutter with 40s to 1 AV conduction. Blood pressure 175/54, heart rate 58 and respiration 18 and pulse ox 98% on room air on admission. Laboratory data showed WBC 9.6 hemoglobin 13.4 and platelets 226. Sodium 141 potassium 4.2 chloride 105 bicarb is 19 BUN 27 and creatinine 1.79 Living enzymes are not elevated troponin 1 negative and TSH level is 2.16 Urinalysis showed 1+ glucose and no evidence of infection. 07/14/2021 Patient is currently sitting in the bed. Awake alert and oriented. Able to tolerate oral diet. As of chest pain. No headache or dizziness or lightheadedness now. Heart rate is in 50s to 60s. Metoprolol is on hold. 2-D echo cardiac was ordered and cardiology is on board. Denied any complaints of nausea or vomiting. No fever no chills. No cough or sputum production. Laboratory data showed WBC 8.2 hemoglobin 12.2 and platelets 255 BUN 26.5 and creatinine 1.9 Next and current medications reviewed. Objective - Vital Signs Vital signs: Vital Signs Temp 98.4 F 07/14/21 18:43 Pulse 68 07/14/21 20:00 Resp 16 07/14/21 20:00 BP 151/76 07/14/21 18:43 Pulse Ox 97 07/14/21 18:43 Intake & Output 07/14/21 07/14/21 07/15/21 06:59 18:59 06:59 Intake Total 360 Output Total 400 300 Balance -400 60 Intake: Oral 360 Output: Urine 400 300 Other: Voiding Method Toilet Toilet # Voids 2 1 1 - Exam PHYSICAL EXAMINATION: Patient is lying in the bed comfortably, no acute distress, awake alert and oriented. Poor historian.. HEENT: Normocephalic. Neck is supple. Pupils reactive. Nostrils clear. Oral cavity is moist. Neck reveals no JVD, carotid bruits, or thyromegaly. CHEST EXAMINATION: Trachea is central. Symmetrical expansion. Scattered crackles. Lung robertson clear to auscultation and percussion. CARDIAC: Normal S1, S2 with no gallops. No murmurs ABDOMEN: Soft. Bowel sounds normal. No organomegaly. No abdominal bruits. Extremities: reveal no edema. No clubbing or cyanosis Neurologically awake, alert, oriented x3 with well-coordinated movements. No focal deficits noted Skin: No rash or skin lesions. Psychiatric: Coperative. Nonsuicidal Musculoskeletal: No joint swelling or deformity. Normal range of motion. - Labs CBC & Chem 7: 07/14/21 06:35 07/14/21 06:35 Labs: Abnormal Lab Results - Last 24 Hours (Table) 07/14/21 07/14/21 07/14/21 Range/Units 06:35 06:35 07:13 RBC 3.74 L (4.40-5.60) X 10*6/uL Hgb 12.2 L (13.0-17.0) g/dL Hct 38.1 L (39.6-50.0) % MCV 101.9 H (80.0-97.0) fL MCH 32.6 H (27.0-32.0) pg Chloride 112 H (96-109) mmol/L Creatinine 1.9 H (0.6-1.5) mg/dL Est GFR (CKD-EPI)AfAm 36.7 L (60.0-200.0) Est GFR (CKD-EPI)NonAf 31.6 L (60.0-200.0) Glucose 127 H (70-110) mg/dL POC Glucose (mg/dL) 154 H (75-99) mg/dL 11/04/2607/14/21 07/14/21 Range/Units 12:09 17:20 20:22 RBC (4.40-5.60) X 10*6/uL Hgb (13.0-17.0) g/dL Hct (39.6-50.0) % MCV (80.0-97.0) fL MCH (27.0-32.0) pg Chloride (96-109) mmol/L Creatinine (0.6-1.5) mg/dL Est GFR (CKD-EPI)AfAm (60.0-200.0) Est GFR (CKD-EPI)NonAf (60.0-200.0) Glucose (70-110) mg/dL POC Glucose (mg/dL) 115 H 226 H 136 H (75-99) mg/dL Assessment and Plan Assessment: Atrial flutter with 4:1 conduction. Symptomatic bradycardia with generalized weakness and not feeling well.Heart rate improved now. Paroxysmal atrial fibrillation on anticoagulation with Eliquis and on metoprolol for rate control. Diabetes type 2 insulin dependent Uncontrolled hypertension Acute on Chronic kidney disease stage III Currently everyday smoker DVT prophylaxis patient is already on full anticoagulation Plan: Patient will be continued on telemetry monitoring. Metoprolol is on hold due to symptomatic bradycardia. Patient will be given gentle IV hydration and encourage oral intake. TSH is within normal limits. Monitor renal function and cardiology is following. 2-D echocardiogram was ordered. Continue to follow closely.
[2021-07-15 10:13] LABS: Basophils # (A) 0.05 X 10*3/uL (0.00-0.10); Basophils % (A) 0.5 %; Eosinophils # (A) 0.19 X 10*3/uL (0.04-0.35); Eosinophils % (A) 1.9 %; HCT 40.9 % (39.6-50.0); Lymphocytes # (A) 1.82 X 10*3/uL (0.90-5.00); Lymphocytes % (A) 18.4 %; MCH 32.4 pg (27.0-32.0); MCHC 31.8 g/dL (32.0-37.0); Mean Platelet Volume 11.2 fL (9.5-12.2); Monocytes # (A) 0.98 X 10*3/uL (0.20-1.00); Monocytes % (A) 9.9 %; Neutrophils # (A) 6.82 X 10*3/uL (1.80-7.70); Neutrophils % (A) 68.9 %; Platelet Count 259 X 10*3/uL (140-440); RBC 4.01 X 10*6/uL (4.40-5.60); RDW 12.4 % (11.5-14.5)
--- NOTE | 2021-07-15 10:23 | P.PN ---
Subjective HISTORY OF PRESENTING ILLNESS Patient is a pleasant 86-year-old male who was transferred from [facility] secondary to A. fib and apparent symptomatic bradycardia. Patient seen and examined at bedside, appears more alert this morning. He denies any chest pain, pressure, shortness breath, palpitations, lightheadedness, dizziness. He does not have any complaints at this time. Patient is on amlodipine 5 mg daily, Eliquis 2.5 mg twice a day, aspirin 80 mg daily, Lofibra 54mg nightly, synthroid, lamictal, zyprexa, flomax. Telemetry reviewed, his heart rates have been in the 50s to 60s without significant pauses noted. TSH within normal limits. Echocardiogram revealed an EF of 5055 percent, mild mitral regurgitation, trace tricuspid regurgitation. PHYSICAL EXAMINATION Vital signs reviewed. CONSTITUTIONAL: No apparent distress. HEENT: Neck Supple No JVD. CHEST EXAMINATION: Lungs are clear to auscultation. No chest wall tenderness is noted on palpation or with deep breathing. HEART EXAMINATION: Regular rate and rhythm. S1, S2 heard. No murmurs, gallops or rub. ABDOMEN: Soft, nontender. Positive bowel sounds. EXTREMITIES: 2+ peripheral pulses, no lower extremity edema and no calf tenderness. NEUROLOGIC EXAMINATION: Patient is awake, alert poor historian ASSESSMENT Atrial flutter with heart rates in the 50s to 60s Questionable symptomatic bradycardia Reported fatigue, currently denying Chronic kidney disease Dementia PLAN -Telemetry reviewed, his heart rates have been in the 50s to 60s without significant pauses noted. -Continue to hold home metoprolol. -Continue anticoagulation -No further workup inpatient from a cardiology perspective and recommend patient follow-up as an outpatient. -Patient is from [facility] and will follow with Dr. Dowd at his [facility] office. Objective - Vital Signs Vital signs: Vital Signs Temp 98.4 F 07/15/21 07:20 Pulse 63 07/15/21 07:55 Resp 20 07/15/21 07:55 BP 146/74 07/15/21 07:20 Pulse Ox 95 07/15/21 07:20 Intake & Output 07/14/21 07/15/21 07/15/21 18:59 06:59 18:59 Intake Total 360 360 Output Total 300 300 Balance 60 -300 360 Intake: Oral 360 360 Output: Urine 300 300 Other: Voiding Method Toilet Toilet Toilet # Voids 1 1 - Labs CBC & Chem 7: 07/15/21 05:32 07/14/21 06:35 Labs: Abnormal Lab Results - Last 24 Hours (Table) 07/14/21 07/14/21 07/14/21 Range/Units 06:35 06:35 12:09 RBC 3.74 L (4.40-5.60) X 10*6/uL Hgb 12.2 L (13.0-17.0) g/dL Hct 38.1 L (39.6-50.0) % MCV 101.9 H (80.0-97.0) fL MCH 32.6 H (27.0-32.0) pg MCHC (32.0-37.0) g/dL Chloride 112 H (96-109) mmol/L Creatinine 1.9 H (0.6-1.5) mg/dL Est GFR (CKD-EPI)AfAm 36.7 L (60.0-200.0) Est GFR (CKD-EPI)NonAf 31.6 L (60.0-200.0) Glucose 127 H (70-110) mg/dL POC Glucose (mg/dL) 115 H (75-99) mg/dL 07/14/21 07/14/21 07/15/21 Range/Units 17:20 20:22 05:32 RBC 4.01 L (4.40-5.60) X 10*6/uL Hgb (13.0-17.0) g/dL Hct (39.6-50.0) % MCV 102.0 H (80.0-97.0) fL MCH 32.4 H (27.0-32.0) pg MCHC 31.8 L (32.0-37.0) g/dL Chloride (96-109) mmol/L Creatinine (0.6-1.5) mg/dL Est GFR (CKD-EPI)AfAm (60.0-200.0) Est GFR (CKD-EPI)NonAf (60.0-200.0) Glucose (70-110) mg/dL POC Glucose (mg/dL) 226 H 136 H (75-99) mg/dL 07/15/21 Range/Units 07:12 RBC (4.40-5.60) X 10*6/uL Hgb (13.0-17.0) g/dL Hct (39.6-50.0) % MCV (80.0-97.0) fL MCH (27.0-32.0) pg MCHC (32.0-37.0) g/dL Chloride (96-109) mmol/L Creatinine (0.6-1.5) mg/dL Est GFR (CKD-EPI)AfAm (60.0-200.0) Est GFR (CKD-EPI)NonAf (60.0-200.0) Glucose (70-110) mg/dL POC Glucose (mg/dL) 146 H (75-99) mg/dL
[2021-07-15 11:00] LABS: BUN/Creat Ratio 12.95 Ratio (12.00-20.00); Blood Urea Nitrogen 25.9 mg/dL (9.0-27.0); Calcium 9.2 mg/dL (8.7-10.3); Non-African American GFR(CKD) 29.3 (60.0-200.0); Potassium 4.2 mmol/L (3.5-5.5)
== END 2021-07-15 12:07 ==
LOC: EC 18:52 → 6NMEDSUR 21:34
PROVIDERS: ADMIT Internal Medicine; ATTEND Internal Medicine
DX: I48.92 Unspecified atrial flutter (principal); I48.0 Paroxysmal atrial fibrillation; E78.5 Hyperlipidemia, unspecified; I12.9 Hypertensive chronic kidney disease with stage 1 through stage 4 chronic kidney disease, or unspecified chronic kidney disease; E11.22 Type 2 diabetes mellitus with diabetic chronic kidney disease; N18.30 Chronic kidney disease, stage 3 unspecified; N17.9 Acute kidney failure, unspecified; F17.200 Nicotine dependence, unspecified, uncomplicated; E03.9 Hypothyroidism, unspecified; I44.7 Left bundle-branch block, unspecified; F03.90 Unspecified dementia, unspecified severity, without behavioral disturbance, psychotic disturbance, mood disturbance, and anxiety; I34.0 Nonrheumatic mitral (valve) insufficiency; N40.0 Benign prostatic hyperplasia without lower urinary tract symptoms; Z20.822 Contact with and (suspected) exposure to COVID-19; Z79.899 Other long term (current) drug therapy; Z79.01 Long term (current) use of anticoagulants; Z79.82 Long term (current) use of aspirin; Z79.4 Long term (current) use of insulin; Z79.890 Hormone replacement therapy
CPT/HCPCS: 99285; 36415; 93005; 82747; 80053 ×2; 80048 ×2; 82607; 83735; 84443; 84484; 85025 ×4; 85610; 85730; 81003; 71045; G0378 ×4; C8929; Q9950; 93306